=== PATIENT | female | born 1950 | race Hispanic/Latino ===

== ENCOUNTER 2022-11-23 09:47 | Emergency (ER) | payer OTHER ==
[~2022-11-23] VITALS: Ht 162.6 cm; Wt 95.3 kg
[2022-11-23 10:15] LABS: APPEARANCE,URINE CLEAR (CLEAR); BILIRUBIN,URINE NEGATIVE (NEGATIVE); COLOR,URINE YELLOW (YELLOW); GLUCOSE, URINE (UA) NEGATIVE (NEGATIVE); KETONES,URINE NEGATIVE (NEGATIVE); LEUKOCYTE ESTERASE ,URINE 250 Leu/uL (NEGATIVE); NITRATE,URINE NEGATIVE (NEGATIVE); OCCULT BLOOD,URINE NEGATIVE (NEGATIVE); PROTEIN,URINE NEGATIVE (NEGATIVE); UROBILINOGEN,URINE 0.2 mg/dL (0.2-1.0)
[2022-11-23 10:21] LABS: MUCUS,URINE FEW LPF (None Seen); RBC,URINE 0-1 /HPF (0-1); SQUAMOUS EPITHELIAL CELL,UR RARE /HPF (0-2)
[2022-11-23 10:35] LABS: BASOPHILS % (AUTO) 0.4 % (0.0-5.0); EOSINOPHILS % (AUTO) 1.1 % (0.0-8.0); LYMPHOCYTES % (AUTO) 16.9 % (21.0-51.0); MEAN CORPUSCULAR HEMOGLOBIN 30.6 pg (27.0-33.0); MEAN CORPUSCULAR HGB CONC 32.9 g/dL (32.0-36.0); MEAN CORPUSCULAR VOLUME 93.1 fL (79-99); MONOCYTES % (AUTO) 6.6 % (3.0-13.0); NEUTROPHILS % (AUTO) 74.7 % (40.0-77.0); PLATELET COUNT (AUTO) 324 K/uL (130-400); RED BLOOD CELL COUNT(AUTO) 4.51 MIL/uL (4.00-5.50); RED CELL DISTRIBUTION WIDTH 12.4 % (11.0-15.5); WHITE BLOOD COUNT (AUTO) 7.3 K/uL (4.8-10.8)
[2022-11-23 10:48] LABS: ALBUMIN 3.4 g/dL (3.5-5.0); CREATININE 0.7 mg/dL (0.5-1.5); POTASSIUM 3.9 mmol/L (3.5-5.1); TOTAL PROTEIN, SERUM 7.6 g/dL (6.0-8.3)
[2022-11-23] MEDS ORDERED: CEFTRIAXONE 1G VIAL IVPB ONE (12:30)
[2022-11-23] MEDS ORDERED: METH-811 PO (12:33)
[2022-11-23] MEDS ORDERED: ibuprofen PO (12:33)
[2022-11-23] MEDS ORDERED: CEPH500B PO (12:33)
[2022-11-23 15:11] VITALS: BP 131/68
== END 2022-11-23 15:17 | disposition home or self-care (01) ==
LOC: EDH 09:47
DX: E11.65 Type 2 diabetes mellitus with hyperglycemia (principal); N39.0 Urinary tract infection, site not specified; M62.830 Muscle spasm of back; I10 Essential (primary) hypertension
CPT/HCPCS: 99284; 96365; 80053; 83690; 85025; 87088; 81001; 36415; J0696

== ENCOUNTER 2024-05-05 23:38 | Emergency (ER) | payer OTHER, MEDICARE ==
[~2024-05-05] VITALS: Ht 162.6 cm; Wt 94.3 kg
[~2024-05-05 23:38] MED LIST: CEPH500B PO; METH-811 PO; ibuprofen PO
--- NOTE | 2024-05-05 23:48 | NUR ---
UA CUP PROVIDED
[2024-05-06 00:02] LABS: BASOPHILS # (AUTO) 0.02 K/uL (0.00-0.20); BASOPHILS % (AUTO) 0.3 % (0.0-5.0); EOSINOPHILS # (AUTO) 0.09 K/uL (0.00-0.70); EOSINOPHILS % (AUTO) 1.3 % (0.0-8.0); HEMATOCRIT 41.1 % (36-48); IMMATURE GRANULOCYTE ABSOLUTE 0.03 K/uL (0-1); LYMPHOCYTES # (AUTO) 2.1 K/uL (1.0-4.8); LYMPHOCYTES % (AUTO) 29.4 % (21.0-51.0); MEAN CORPUSCULAR HGB CONC 33.3 g/dL (32.0-36.0); MONOCYTES # (AUTO) 0.5 K/uL (0.1-1.0); MONOCYTES % (AUTO) 6.8 % (3.0-13.0); NEUTROPHILS # (AUTO) 4.4 K/uL (1.8-7.7); NEUTROPHILS % (AUTO) 61.8 % (40.0-77.0); PLATELET COUNT (AUTO) 273 K/uL (130-400); RED BLOOD CELL COUNT(AUTO) 4.42 MIL/uL (4.00-5.50); RED CELL DISTRIBUTION WIDTH 12.4 % (11.0-15.5); WHITE BLOOD COUNT (AUTO) 7.1 K/uL (4.8-10.8)
[2024-05-06 00:07] LABS: APPEARANCE,URINE CLEAR (CLEAR); BILIRUBIN,URINE NEGATIVE (NEGATIVE); COLOR,URINE YELLOW (YELLOW); GLUCOSE, URINE (UA) NEGATIVE (NEGATIVE); KETONES,URINE 5 mg/dL (NEGATIVE); LEUKOCYTE ESTERASE ,URINE 25 Leu/uL (NEGATIVE); NITRATE,URINE NEGATIVE (NEGATIVE); OCCULT BLOOD,URINE NEGATIVE (NEGATIVE); PROTEIN,URINE 10 mg/dL (NEGATIVE)
[2024-05-06 00:08] LABS: ADD UA MICROSCOPIC YES
[2024-05-06 00:10] LABS: MUCUS,URINE RARE LPF (None Seen); SQUAMOUS EPITHELIAL CELL,UR FEW /HPF (0-2)
[2024-05-06 00:15] LABS: CREATININE 0.7 mg/dL (0.5-1.0); MAGNESIUM 1.8 mg/dL (1.80-2.40); POTASSIUM 3.7 mmol/L (3.5-5.1)
--- NOTE | 2024-05-06 00:18 | ERN ---
ED Note History of Present Illness Stated Complaint: HEADACHE, DIZZINESS,COUGH Chief Complaint: Multiple Complaints Time Seen by MD: 23:50 Dictation: Patient is a 73-year-old female with a past medical history of diabetes mellitus, morbid obesity, hypertension who presents to the ER due to elevated BP home, as per patient her blood pressure was 200s reason why her daughter decided to bring her to the ER. Patient also reports that she was feeling dizzy, was having headache. Patient denies chest pain, shortness breath. She does take lisinopril 20 mg at night daily. Allergies: Coded Allergies: No Known Allergies (Unverified Allergy, Unknown, 11/23/22) Home Meds Active Scripts Acetaminophen (Tylenol) 500 Mg Tab, 1 TAB PO Q6HPRN PRN for headache for 15 Days, #60 TAB 0 Refills Prov:KEVIN GRAHAM MD 05/06/24 Amlodipine Besylate (Amlodipine Besylate) 5 Mg Tablet, 1 TAB PO BID for 30 Days, #30 TAB 0 Refills Prov:KEVIN GRAHAM MD 05/06/24 Lisinopril (Lisinopril) 10 Mg Tablet, 1 TAB PO DAILYDINNER for 30 Days, #30 TAB 0 Refills Prov:KEVIN GRAHAM MD 05/06/24 Methocarbamol (Methocarbamol) 500 Mg Tablet, 500 MG PO QID for 7 Days, #30 TAB Prov:ELLIS GOLD MD 11/23/22 [ibuprofen ] No Conflict Check, 600 MG PO TID, #30 TAB 0 Refills Prov:ELLIS GOLD MD 11/23/22 Cephalexin Monohydrate (Keflex) 500 Mg Cap, 500 MG PO QID for 7 Days, #28 CAP Prov:ELLIS GOLD MD 11/23/22 Past Medical History Past Medical History: Diabetes-Type II, Hypertension Surgical History: None Social History: Negative, Lives with family Review of System Dictation NEGATIVE EXCEPT PER HPI Constitutional: Negative for fever,chills, and weight loss Eyes: Negative for injury, pain,redness, and discharge ENT: Negative for injury,pain or swelling Cardiovascular: denies chest pain, palpitations, and edema Respiratory: Negative for shortness of breath, cough, and wheezing, Abdomen/GI: Negative for abdominal pain, nausea, vomiting, diarrhea, and constipation Back: Negative for injury and pain : Negative for injury, bleeding and discharge MS/Extremity: Negative for injury and deformity Skin: Negative for rash, and discoloration Neuro: Negative for headache, weakness, numbness, tingling, and seizure Psych: Negative for suicide ideation, homicidal ideation, and hallucinations Initial Vital Sign VS Vital Signs Date Time Temp Pulse Resp B/P (MAP) Pulse Ox O2 Delivery O2 Flow Rate FiO2 05/05/24 23:40 97.2 60 16 170/78 98 Room Air 05/06/24 01:49 0 21 Physical Exam Dictation General: awake, alert, NAD Head/Face: Normocephalic, atraumatic Eyes: PERRL, EOMI, vision at baseline ENT: oral cavity clear, TMs clear, no signs of infection Neck: Trachea midline, supple, no nuchal rigidity Cardiovascular: RRR, normal S1/S2, No MRGs, no JVD Respiratory: CTAB, no respiratory distress, No rales or wheezes Abdomen: Soft , no tender Skin: Warm, dry, normal turgor, no rash MS/Extremity: Pulses equal, no cyanosis, neurovascular intact, FROM Neuro: COAx4, GCS 15, strength 5/5, CN 2-12 intact, normal cerebellar exam, normal gait, Psych: Normal behavior, mood, and affect normal Results (Laboratory/Radiology) Laboratory/Radiology Laboratory Tests Test 05/05/24 23:55 White Blood Count 7.1 K/uL (4.8-10.8) Red Blood Count 4.42 MIL/uL (4.00-5.50) Hemoglobin 13.7 g/dL (12.0-16.0) Hematocrit 41.1 % (36-48) Mean Corpuscular Volume 93.0 fL (79-99) Mean Corpuscular Hemoglobin 31.0 pg (27.0-33.0) Mean Corpuscular Hemoglobin Concent 33.3 g/dL (32.0-36.0) Red Cell Distribution Width 12.4 % (11.0-15.5) Platelet Count 273 K/uL (130-400) Mean Platelet Volume 9.5 fL (7.5-10.5) Immature Granulocyte % (Auto) 0.4 % (0-1) Neutrophils (%) (Auto) 61.8 % (40.0-77.0) Lymphocytes (%) (Auto) 29.4 % (21.0-51.0) Monocytes (%) (Auto) 6.8 % (3.0-13.0) Eosinophils (%) (Auto) 1.3 % (0.0-8.0) Basophils (%) (Auto) 0.3 % (0.0-5.0) Neutrophils # (Auto) 4.4 K/uL (1.8-7.7) Lymphocytes # (Auto) 2.1 K/uL (1.0-4.8) Monocytes # (Auto) 0.5 K/uL (0.1-1.0) Eosinophils # (Auto) 0.09 K/uL (0.00-0.70) Basophils # (Auto) 0.02 K/uL (0.00-0.20) Absolute Immature Granulocyte (auto 0.03 K/uL (0-1) Nucleated Red Blood Cells 0.0 % (0.0-0.19) Urine Color YELLOW (YELLOW) Urine Appearance CLEAR (CLEAR) Urine pH 6.0 (5.0-8.0) Urine Specific [place] 1.023 (1.001-1.031) Urine Protein 10 mg/dL (NEGATIVE) H Urine Glucose (UA) NEGATIVE mg/dL (NEGATIVE) Urine Ketones 5 mg/dL (NEGATIVE) H Urine Occult Blood NEGATIVE (NEGATIVE) Urine Nitrate NEGATIVE (NEGATIVE) Urine Bilirubin NEGATIVE mg/dL (NEGATIVE) Urine Urobilinogen 2.0 mg/dL (0.2-1.0) H Urine Leukocyte Esterase 25 Home/uL (NEGATIVE) H Urine RBC 2-5 /HPF (0-1) H Urine WBC 2-5 /HPF (0-1) H Urine Squamous Epithelial Cells FEW /HPF (0-2) Urine Bacteria None /HPF (None Seen) Sodium Level 141 mmol/L (136-145) Potassium Level 3.7 mmol/L (3.5-5.1) Chloride Level 104 mmol/L (101-111) Carbon Dioxide Level 31 mmol/L (21-32) Blood Urea Nitrogen 14 mg/dL (7-18) Creatinine 0.7 mg/dL (0.5-1.0) Glomerular Filtration Rate Calc 91 mL/min (>90) Random Glucose 221 mg/dL (70-105) H Total Calcium 9.2 mg/dL (8.5-10.1) Magnesium Level 1.80 mg/dL (1.80-2.40) Troponin I High Sensitivity 6 ng/L (4-50) B-Type Natriuretic Peptide 19 pg/mL (0-100) ED Course ED Course Orders Procedure Category Date Status Time Ct Head/Brain W/O CT 05/05/24 Resulted Contrast 23:41 Chest 1vw RAD 05/05/24 Taken 23:41 Troponin I High LAB 05/05/24 Complete Sensitivity 23:41 Cbc With Differential LAB 05/05/24 Complete 23:41 Basic Metabolic Panel LAB 05/05/24 Complete 23:41 B-Type Natriuretic LAB 05/05/24 Complete Peptide 23:41 Urinalysis Profile LAB 05/05/24 Complete 23:41 Magnesium LAB 05/05/24 Complete 23:41 12 Lead Ekg Tracing- EKG 05/05/24 Logged Technical 23:41 Hydralazine 25mg Tab PHA 05/06/24 In Process ([id number] Tab 00:30 Amlodipine 5 Mg Tab PHA 05/06/24 Complete (Norvasc 5mg Tab) 01:30 Amlodipine 5 Mg Tab PHA 05/06/24 Complete (Norvasc 5mg Tab) 02:30 Current Medications Medications (Trade) Dose Ordered Sig/Mell Route PRN Reason Start Time Stop Time Status Last Admin Dose Admin Amlodipine Besylate (NorvASC 5MG TAB) 5 mg ONCE ONCE PO 05/06/24 01:30 05/06/24 02:19 DC Amlodipine Besylate (NorvASC 5MG TAB) 10 mg ONCE ONCE PO 05/06/24 02:30 05/06/24 02:31 DC 05/06/24 02:22 Hydralazine HCl ([id number] TAB) 50 mg ONCE PO 05/06/24 00:30 06/05/24 00:29 05/06/24 01:53 Vital Signs Date Time Temp Pulse Resp B/P (MAP) Pulse Ox O2 Delivery O2 Flow Rate FiO2 05/06/24 01:49 98.1 58 18 169/73 98 Room Air* 0 21 05/05/24 23:40 97.2 60 16 170/78 98 Room Air Medical Decision Making MDM 73-year-old female brought to the emergency department due to elevated blood pressure, stated that systolic blood pressure was in 200s at home. Patient states that his symptoms has been started 2 days ago with the balance issues and yesterday around 6:00 p.m. she started having dizziness/headache. -Hypertensive urgency -stroke like symptoms NIH 0 Hydralazine 50 mg oral ordered Amlodipine 5 mg ordered Laboratory and chest x-ray and CT of head ordered on arrival to the ER. We will follow results. Patient needed to make a log of BP at home and follow up with the PCP for adjustment of medication. Re-evaluation: Laboratory reviewed, CT images of head reviewed, no acute abnormalities reported. FINDINGS: The ventricles and extraventricular CSF spaces are dilated consistent with cerebral atrophy. Nonspecific white matter changes seen. There is no midline shift, mass effect or herniation. No acute intracranial bleed is seen. Visualized portion of the paranasal sinuses are grossly within normal limits. IMPRESSION: 1. No acute intracranial bleed is seen. 2. Atrophy with white matter changes. Vital signs reviewed: BP On discharge amlodipine he will be added 10 mg daily. Patient has increasing lisinopril dose. I will suggest lisinopril 20 mg AM and 10P mgM DX & DISP Disposition: Discharge Departure Impression: Primary Impression: Hypertensive urgency Additional Impressions: Morbid obesity, Diabetes Condition: Stable Scripts Acetaminophen (Tylenol) 500 Mg Tab 1 TAB PO Q6HPRN PRN for headache for 15 Days, #60 TAB 0 Refills Prov: KEVIN GRAHAM MD 05/06/24 Amlodipine Besylate (Amlodipine Besylate) 5 Mg Tablet 1 TAB PO BID for 30 Days, #30 TAB 0 Refills Prov: KEVIN GRAHAM MD 05/06/24 Lisinopril (Lisinopril) 10 Mg Tablet 1 TAB PO DAILYDINNER for 30 Days, #30 TAB 0 Refills Prov: KEVIN GRAHAM MD 05/06/24 Additional Instructions: RETURN TO ER FOR ANY ACUTE OR WORSENING SYMPTOMS. FOLLOW-UP IN 1-2 DAYS WITH PRIMARY PROVIDER FOR RECHECK OF TODAY'S SYMPTOMS. Referrals: BERTHA FOURNIER MD (PCP) KEVIN GRAHAM MD May 06, 2024 00:18
[2024-05-06 00:28] LABS: B-TYPE NATRIURETIC PEPTIDE 19 pg/mL (0-100)
--- NOTE | 2024-05-06 00:55 | HMCIMG ---
CT HEAD/BRAIN W/O CONTRAST HISTORY: Dizziness and headaches COMPARISON: None TECHNIQUE: Multiple sequential axial images of the head were obtained from the base of the skull through vertex. Patient was not given contrast through intravenous route. FINDINGS: The ventricles and extraventricular CSF spaces are dilated consistent with cerebral atrophy. Nonspecific white matter changes seen. There is no midline shift, mass effect or herniation. No acute intracranial bleed is seen. Visualized portion of the paranasal sinuses are grossly within normal limits. IMPRESSION: 1. No acute intracranial bleed is seen. 2. Atrophy with white matter changes. CT was performed with one or more following dose reduction techniques: automated exposure control, adjustment of the mA and kv according to patient's size, or use of a iterative reconstruction technique.
--- NOTE | 2024-05-06 01:16 | NUR ---
BLOOD PRESSURE RECHECK 173/83. RT ARM , SITTING
--- NOTE | 2024-05-06 01:25 | NUR ---
ASSUME PT CARE AT THIS TIME
[2024-05-06] MEDS ORDERED: LISI10TA24 PO (01:29)
[2024-05-06] MEDS ORDERED: AMLO-257 PO (01:29)
[2024-05-06] MEDS ORDERED: ACET-66 PO (01:30)
[2024-05-06] MEDS ORDERED: amLODIPine 5 MG TAB PO ONE (01:30)
[2024-05-06] MEDS: hydrALAZine 25MG TABLET PO SCH (01:53)
[2024-05-06] MEDS: amLODIPine 5 MG TAB PO ONE (02:22)
[2024-05-06 04:31] VITALS: BP 155/72; PULSE 56; RESP 18; TEMP 98.2; O2SAT 98
[2024-05-06] MEDS: hydrALAZine 20MG/ML VIAL IV ONE (04:33)
--- NOTE | 2024-05-06 06:33 | EKG ---
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
--- NOTE | 2024-05-06 09:12 | HMCIMG ---
Exam Type: CHEST 1VW Clinical Information: COUGH Comparison: None Findings and impression: Cardiomegaly. Tortuosity of the aorta. Clear left lung. Questionable right hilar mass. Consider noncontrast CT chest.
== END 2024-05-06 04:36 | disposition home or self-care (01) ==
LOC: EDH 23:38
DX: I16.0 Hypertensive urgency (principal); E11.9 Type 2 diabetes mellitus without complications; E66.01 Morbid (severe) obesity due to excess calories; I10 Essential (primary) hypertension; Z79.899 Other long term (current) drug therapy
CPT/HCPCS: 36415; 70450; 71045; 80048; 81001; 83735; 83880; 84484; 85025; 93005; 99285